=== PATIENT | female | born 1995 | race Caucasian/White ===

== ENCOUNTER 2024-03-08 09:39 | Emergency (ER) | payer OTHER ==
[~2024-03-08] VITALS: Ht 154.9 cm; Wt 48.5 kg
[2024-03-08 10:01] VITALS: BP 132/79; TEMP 98.3
[2024-03-08 10:20] VITALS: O2SAT 99
== END 2024-03-08 10:20 | disposition home or self-care (01) ==
LOC: ER 09:47
DX: S02.2XXA Fracture of nasal bones, initial encounter for closed fracture (principal); X58.XXXA Exposure to other specified factors, initial encounter; Y93.9 Activity, unspecified; Y92.89 Other specified places as the place of occurrence of the external cause; Y99.8 Other external cause status